=== PATIENT | male | born 1990 | race Caucasian/White ===

== ENCOUNTER → 2019-01-18 | Outpatient (CLI) | payer OTHER ==
--- NOTE | 2019-01-18 11:49 | REP ---
CHEST, TWO VIEWS: There is no evidence of acute infiltrate. No pleural effusion is seen. The heart is normal in size. The mediastinal silhouette is unremarkable. The visualized osseous structures are intact. IMPRESSION: No acute pulmonary disease. Electronically Signed by Tai Cifuentes MD 01/18/2019 05:04 P
== END ==
LOC: M LRY 10:56
PROVIDERS: ATTEND Physician Assistant
DX: R50.9 Fever, unspecified (principal)
CPT/HCPCS: 71046; 87804; 87880; G0463

== ENCOUNTER → 2019-01-18 | Outpatient (REF) | payer OTHER | LOC: M SFHCLERA 12:00 | PROVIDERS: ATTEND Physician Assistant | DX: R50.9 Fever, unspecified (principal) ==

== ENCOUNTER 2019-02-15 13:24 | Emergency (ER) | payer OTHER ==
[~2019-02-15] VITALS: Ht 180.3 cm; Wt 95.5 kg
[2019-02-15 13:27] VITALS: BP 142/87
[2019-02-15] MEDS ORDERED: NAPR-885 PO (13:29)
[2019-02-15] MEDS ORDERED: ACETAMINOPHEN TAB 650MG DOSE (2X325MG) PO ONE (14:15)
--- NOTE | 2019-02-15 14:58 | REP ---
Clinical: Testicular pain and swelling. Technique: Real time west scale and color Doppler evaluation using linear and curved array transducers. Findings: Heterogeneous, hypervascular inflamed and prominent mixed echogenic and tubular structures are noted within the right [id number] buddy scrotum without a normal identifiable epididymis. There is a small associated hydrocele. These findings likely represent acute epididymitis. Differential diagnosis must also include associated varicoceles as well as possible vasitis. The right testicle itself appears relatively normal in contour, size, parenchymal echogenicity and vascularity measuring 5.0 x 2.9 x 3.2 cm. Left testicle and epididymis are relatively normal in appearance, echo texture and vascularity. Incidental few scattered testicular microcalcifications are identified. No left-sided hydrocele or varicoceles noted. Left testicle measures 4.2 x 1.9 x 3.1 cm. Impression: 1. Findings as described above. Differential diagnosis includes epididymitis and associated varicoceles as well as the possibility of vasitis cannot definitively be excluded. 2. The bilateral testicles and left epididymis are relatively normal. Electronically Signed by Dayne Mcfarland MD 02/15/2019 02:50 P
[2019-02-15] MEDS ORDERED: cefTRIAXone SOD 250 MG VIAL (J0696) IM ONE (14:59)
[2019-02-15] MEDS ORDERED: DOXY100C37 PO (14:59)
[2019-02-15] MEDS ORDERED: LIDOCAINE 1% SDV 5 ML VIAL DILUENT ONE (15:00)
[2019-02-15 15:40] LABS: CHLAMYDIA DNA AMPLIFICATION POSITIVE (NEGATIVE); GC DNA AMPLIFICATION NEGATIVE (NEGATIVE)
== END 2019-02-15 15:37 | disposition home or self-care (01) ==
LOC: M ED 13:24
DX: N45.3 Epididymo-orchitis (principal); N43.3 Hydrocele, unspecified; M54.9 Dorsalgia, unspecified; Z87.442 Personal history of urinary calculi
CPT/HCPCS: 76870; 81001; 87086; 87491; 87591; 93976; 96372; 99282; J0696